=== PATIENT | male | born 1995 | race African-American/Black ===

== ENCOUNTER 2023-08-23 10:23 | Observation (INO) | payer SELFPAY ==
[~2023-08-23] VITALS: Ht 185.4 cm; Wt 104.6 kg
[2023-08-23] VITALS (40 sets, daily range): BP systolic 95–157; BP diastolic 37–92
[2023-08-23 11:00] LABS: BASO% 0.2 % (0-3); EOS% 0.4 % (0-8); HEMATOCRIT 45.9 % (39.0-50.0); IMMATURE GRANULOCYTES 0.3 % (0.0-5.0); LYMPH% 35.1 % (15-41); MEAN CELL VOLUME 88.4 fL CALC (80.0-100.0); MEAN CORPUSCULAR HGB 28.9 pG CALC (26.0-32.0); MEAN CORPUSCULAR HGB CONC 32.7 g/dL CAL (32.0-36.0); MONO% 10.8 % (2-13); NEUT# 7.4 thou/uL (1.82-7.42); NEUT% 53.2 % (42-76); RED BLOOD COUNT 5.19 mill/uL (4.70-6.10); RED CELL DISTRI WIDTH 11.8 % (11.5-15.5)
[2023-08-23 11:29] LABS: ALBUMIN 5.8 g/dL (3.2-5.0); BILIRUBIN, TOTAL 1.4 mg/dL (0.2-1.3); CREATININE 1.9 mg/dL (0.7-1.3); TOTAL PROTEIN 10.1 g/dL (6.3-8.2)
[2023-08-23 11:55] LABS: POTASSIUM 5.7 mmol/l (3.5-5.1)
[2023-08-23 16:51] LABS: URINE BILIRUBIN - DIPSTICK Negative (NEGATIVE); URINE BLOOD DIPSTICK Negative (NEGATIVE); URINE COLOR Yellow; URINE GLUCOSE - DIPSTICK Negative (NEGATIVE); URINE KETONE 80 mg/dL (NEGATIVE); URINE LEUK ESTERASE Negative (NEGATIVE); URINE NITRITE - DIPSTICK Negative (Negative); URINE PROTEIN - DIPSTICK 30 mg/dL (NEG-TRACE); URINE UROBILINOGEN - DIPSTICK 0.2 E.U./dL (0.2)
[2023-08-23 16:53] LABS: URINE HYALINE CAST FEW lpf (NONE-RARE); URINE SQUAMOUS EPITHELIAL CELL FEW EPI/hpf (0-FEW); URINE WBC 0-2 WBC/hpf (0-5)
[2023-08-23 17:04] LABS: BUN 16 mg/dL (9-20); BUN/CREATININE RATIO 13 (12-20 (CALC)); CHLORIDE 105 mmol/l (95-108); CREATININE 1.2 mg/dL (0.7-1.3); GFR FOR AFR.AMER. > 60 ML/MIN (>=60 (CALC)); GFR OTHER RACES > 60 ML/MIN (>=60 (CALC)); SODIUM 137 mmol/l (137-146)
[2023-08-23 17:14] LABS: ANION GAP 18 (6-22 (CALC)); CARBON DIOXIDE 18 mmol/l (22-30); POTASSIUM 4.4 mmol/l (3.5-5.1)
[2023-08-24 01:34] VITALS: BP 125/68
[2023-08-24 03:01] VITALS: BP 99/43
[2023-08-24 04:00] VITALS: BP 117/63
[2023-08-24 06:01] VITALS: BP 118/68
[2023-08-24 06:51] LABS: BASO% 0.2 % (0-3); EOS% 0.4 % (0-8); IMMATURE GRANULOCYTES 0.2 % (0.0-5.0); LYMPH% 22.2 % (15-41); MEAN CORPUSCULAR HGB 29.1 pG CALC (26.0-32.0); MEAN CORPUSCULAR HGB CONC 33.4 g/dL CAL (32.0-36.0); MONO% 14.5 % (2-13); NEUT# 5.94 thou/uL (1.82-7.42); NEUT% 62.5 % (42-76); RED BLOOD COUNT 4.3 mill/uL (4.70-6.10); RED CELL DISTRI WIDTH 11.9 % (11.5-15.5)
[2023-08-24 06:58] LABS: HEMATOCRIT 37.4 % (39.0-50.0); HEMOGLOBIN 12.5 g/dl (14.0-18.0)
[2023-08-24 06:59] LABS: ALKALINE PHOSPHATASE 54 u/l (38-126); BUN 12 mg/dL (9-20); BUN/CREATININE RATIO 10 (12-20 (CALC)); CHLORIDE 109 mmol/l (95-108); CREATININE 1.2 mg/dL (0.7-1.3); GFR FOR AFR.AMER. > 60 ML/MIN (>=60 (CALC)); GFR OTHER RACES > 60 ML/MIN (>=60 (CALC)); MAGNESIUM 2.4 mg/dL (1.6-2.3); POTASSIUM 4.3 mmol/l (3.5-5.1); SGOT/AST 50 u/l (17-59); SODIUM 141 mmol/l (137-146)
[2023-08-24 07:00] LABS: ALBUMIN 3.6 g/dL (3.2-5.0); ANION GAP 14 (6-22 (CALC)); BILIRUBIN, TOTAL 0.6 mg/dL (0.2-1.3); CARBON DIOXIDE 22 mmol/l (22-30); TOTAL PROTEIN 6.3 g/dL (6.3-8.2)
[2023-08-24 08:08] VITALS: BP 109/57
== END 2023-08-24 11:10 | disposition home or self-care (01) | DRG 897 ==
LOC: EDBD 10:23 → ED 10:23 → ED-I 11:03 → ED 17:23 → ICU 17:24
PROVIDERS: Family Medicine; ADMIT Student in an Organized Health Care Education/Training Program; ATTEND Student in an Organized Health Care Education/Training Program
DX: F15.129 Other stimulant abuse with intoxication, unspecified (principal); F12.10 Cannabis abuse, uncomplicated
CPT/HCPCS: J1650

== ENCOUNTER 2024-08-23 23:45 | Emergency (ER) | payer SELFPAY ==
[~2024-08-23] VITALS: Ht 185.4 cm; Wt 90.7 kg
[2024-08-23 23:52] VITALS: BP 162/104
[2024-08-24] VITALS (7 sets, daily range): BP systolic 137–167; BP diastolic 93–102
[2024-08-24] MEDS ORDERED: IBUPROFEN 200 MG/TAB PO ONE (00:15)
[2024-08-24 00:33] LABS: BASO% 0.2 % (0-3); EOS% 0.5 % (0-8); IMMATURE GRANULOCYTES 0.2 % (0.0-5.0); LYMPH% 22.3 % (15-41); MEAN CELL VOLUME 87.5 fL CALC (80.0-100.0); MEAN CORPUSCULAR HGB CONC 33.1 g/dL CAL (32.0-36.0); MONO% 11.1 % (2-13); NEUT# 6.29 thou/uL (1.82-7.42); NEUT% 65.7 % (42-76); RED BLOOD COUNT 5.11 mill/uL (4.70-6.10)
[2024-08-24 00:44] LABS: HEMATOCRIT 44.7 % (39.0-50.0); HEMOGLOBIN 14.8 g/dl (14.0-18.0)
[2024-08-24 00:45] LABS: ALKALINE PHOSPHATASE 46 u/l (38-126); BILIRUBIN, TOTAL 0.8 mg/dL (0.2-1.3); BUN 7 mg/dL (9-20); BUN/CREATININE RATIO 5 (12-20 (CALC)); CHLORIDE 100 mmol/l (95-108); CREATININE 1.4 mg/dL (0.7-1.3); ESTIMATED GFR 70 ML/MIN (>=90 (CALC)); ETHYL ALCOHOL 0 mg/dl (0-30); SGOT/AST 30 u/l (17-59); SODIUM 137 mmol/l (137-146)
[2024-08-24 00:47] LABS: INTERNATIONAL NORMALIZED RATIO 1.1 RATIO (0.7-1.3)
[2024-08-24 00:48] LABS: ALBUMIN 4.6 g/dL (3.2-5.0); ANION GAP 12 (6-22 (CALC)); CARBON DIOXIDE 28 mmol/l (22-30); POTASSIUM 3.3 mmol/l (3.5-5.1)
[2024-08-24 00:53] LABS: PROTHROMBIN TIME 11.6 SECONDS (9.0-12.5)
== END 2024-08-24 01:30 | disposition designated cancer center or children's hospital (05) | DRG 897 ==
LOC: ED 23:45
PROVIDERS: Family Medicine
DX: F15.122 Other stimulant abuse with intoxication with perceptual disturbance (principal); Z20.822 Contact with and (suspected) exposure to COVID-19; F99 Mental disorder, not otherwise specified

== ENCOUNTER 2024-08-31 15:21 | Emergency (ER) | payer SELFPAY ==
[2024-08-31] VITALS (9 sets, daily range): BP systolic 101–129; BP diastolic 53–63
[~2024-08-31] VITALS: Ht 185.4 cm; Wt 115.0 kg
[2024-08-31] MEDS ORDERED: DiphenhydrAMINE HCL 50 MG/ML SDV IV ONE (15:35)
[2024-08-31] MEDS ORDERED: LORazepam 2 MG/ML IV ONE (15:35)
[2024-08-31] MEDS ORDERED: HALOPERIDOL LACTATE 5 MG/ML SDV IV ONE (15:35)
[2024-08-31 16:41] LABS: ALBUMIN 4.3 g/dL (3.2-5.0); ALKALINE PHOSPHATASE 41 u/l (38-126); ANION GAP 12 (6-22 (CALC)); BASO% 0.1 % (0-3); BILIRUBIN, TOTAL 0.5 mg/dL (0.2-1.3); BUN 12 mg/dL (9-20); BUN/CREATININE RATIO 9 (12-20 (CALC)); CARBON DIOXIDE 28 mmol/l (22-30); CHLORIDE 104 mmol/l (95-108); CREATININE 1.3 mg/dL (0.7-1.3); EOS% 1.1 % (0-8); ESTIMATED GFR 76 ML/MIN (>=90 (CALC)); ETHYL ALCOHOL 0 mg/dl (0-30); HEMATOCRIT 39.9 % (39.0-50.0); IMMATURE GRANULOCYTES 0.1 % (0.0-5.0); LYMPH% 31.9 % (15-41); MEAN CELL VOLUME 88.3 fL CALC (80.0-100.0); MEAN CORPUSCULAR HGB 28.8 pG CALC (26.0-32.0); MEAN CORPUSCULAR HGB CONC 32.6 g/dL CAL (32.0-36.0); MONO% 9.6 % (2-13); NEUT# 4.24 thou/uL (1.82-7.42); NEUT% 57.2 % (42-76); POTASSIUM 3.4 mmol/l (3.5-5.1); RED BLOOD COUNT 4.52 mill/uL (4.70-6.10); RED CELL DISTRI WIDTH 12.2 % (11.5-15.5); SGOT/AST 42 u/l (17-59); SODIUM 140 mmol/l (137-146); TOTAL PROTEIN 7.5 g/dL (6.3-8.2)
== END 2024-08-31 21:00 | DRG 897 ==
LOC: ED 15:21
PROVIDERS: Family Medicine
DX: F15.122 Other stimulant abuse with intoxication with perceptual disturbance (principal); Z20.822 Contact with and (suspected) exposure to COVID-19
CPT/HCPCS: J1200; J1630; J2060